=== PATIENT | female | born 1995 | race Caucasian/White ===

== ENCOUNTER → 2022-04-22 13:21 | Outpatient (CLI) | payer BC, SELFPAY ==
--- NOTE | ~2022-04-22 | US_ITS ---
EXAMINATION: US pelvic complete w TV DATE: 04/22/2022 14:00 INDICATION: Verify IUD placement. Comparison:No prior studies for comparison. TECHNIQUE: Multiple transabdominal and endovaginal sonographic images of the pelvis performed. FINDINGS: The uterus measures 9.9 x 4.1 x 4.3 cm. There is an IUD within the endometrium. The endomet rial complex measures 4 mm. The right ovary measures 3 x 2 x 2.7 cm and the left ovary measures 3.2 x 1.7 x 2.5 cm. There are sm all follicles in each ovary. Normal doppler signal in both ovaries. There is no free fluid in the pelvis. There are no abnormal masses seen on either side. IMPRESSION: 1. Unremarkable pelvic ultrasound. Reviewed, dictated and finalized at location A.
== END ==
PROVIDERS: PCP Family Medicine; Visit Provider Nurse Practitioner
DX: T83.32XA Displacement of intrauterine contraceptive device, initial encounter (principal)
CPT/HCPCS: 76830; 76856

== ENCOUNTER 2023-03-11 15:47 | Outpatient (CLI) | payer BC, SELFPAY ==
--- NOTE | ~2023-03-11 | US_ITS ---
EXAMINATION: US pelvic complete w TV DATE: 03/11/2023 16:57 INDICATION: Left-sided pelvic pain and missing string of an IUD TECHNIQUE: Multiple transabdominal and endovaginal sonographic images of the pelvis were obtained. COMPARISON: 04/22/2022 FINDINGS: The uterus measures 8.1 x 4.6 x 4.0 cm.. A linear echogenic and shadowing T-shaped IUD is in expected position within the endometrial canal. The endometrial complex measures approximately 4-5 mm in thic kness however assessment is limited by the presence of the IUD. Subtle linear echogenic structure whi ch curves and without posterior acoustic shadowing likely representing the string of the IUD extends caudally into the cephalad third of the cervix. Cervical length measures approximately 3.7 cm. The ri ght ovary measures 2.1 x 1.9 x 2.0 cm. The left ovary measures 3.9 x 3.1 x 3.1 cm. There is a 3.7 x 2 .6 x 2.3 cm anechoic cyst/follicle in the left ovary. There is an 8 mm anechoic cyst/follicle in the right ovary. Vascular flow identified in both ovaries on color Doppler. There is no free fluid in the pelvis. IMPRESSION: 1. IUD in expected position within the endometrial canal with string extending into the cephalad aspe ct of the endocervical canal. 2. 3.7 similar left ovarian cyst/follicle. Reviewed, dictated and finalized at location A. IMPRESSION: 1. IUD in expected position within the endometrial canal with string extending into the cephalad aspect of the endocervical canal. 2. 3.7 similar left ovarian cyst/follicle.
== END 2023-03-11 15:48 | disposition home or self-care (01) ==
PROVIDERS: PCP Family Medicine; Visit Provider Nurse Practitioner
DX: N93.8 Other specified abnormal uterine and vaginal bleeding (principal); Z97.5 Presence of (intrauterine) contraceptive device; N83.202 Unspecified ovarian cyst, left side
CPT/HCPCS: 76830; 76856